=== PATIENT | female | born 1955 | race Caucasian/White ===

== ENCOUNTER 2019-12-16 10:39 | Day surgery (SDC) | payer OTHER ==
[~2019-12-16 10:39] MED LIST: SODIUM CHLORIDE 0.9% 1000 ML 1,000 ML IV SCH
--- NOTE | 2019-12-16 12:00 | Anesthesia Consultation ---
Anesthesia Consult and Med Hx Date of service: 12/16/19 - Airway Anesthetic Teeth Evaluation: Crowns ROM Head & Neck: Adequate Mental/Hyoid Distance: Adequate Mallampati Class: Class I Intubation Access Assessment: Good - Pulmonary Exam CTA: Yes - Cardiac Exam Cardiac Exam: No Murmur - Pre-Operative Health Status ASA Pre-Surgery Classification: ASA2 Proposed Anesthetic Plan: MAC - Pulmonary Hx Smoking: No Hx Respiratory Symptoms: No COPD: No Hx Sleep Apnea: No - Cardiovascular System Hx Hypertension: Yes Hx Angina: No Hx Pacemaker: No Hx Internal Defibrillator: No Hx Peripheral Vascular Disease: No - Central Nervous System Hx Neuromuscular Disorder: No Hx Seizures: No Hx Psychiatric Problems: No - Gastrointestinal Hx Ulcer: Yes Hx Gastroesophageal Reflux Disease: Yes (Hiatal hernia) - Endocrine Hx Renal Disease: No Hx Liver Disease: No Hx Insulin Dependent Diabetes: No Hx Non-Insulin Dependent Diabetes: No Hx Thyroid Disease: No - Other Systems Hx Alcohol Use: No Hx Substance Use: No Hx Obesity: No - Additional Comments Anesthesia Medical History Comments: Patient denies previous anesthesia complications
--- NOTE | 2019-12-16 12:02 | Anesthesia Day of Surgery ---
Anesthesia Day of Surgery - Day of Surgery Patient Examined: Yes Patient H&P Reviewed: Yes Patient is NPO: Yes Beta Blockers: No Cardiac Clearance: No Pulmonary Clearance: No
[2019-12-16] MEDS ORDERED: propofoL 200 MG/20 ML VIAL IV ONE (12:04)
[2019-12-16] MEDS ORDERED: fentaNYL 100 MCG/2 ML INJ ONE (12:04)
[2019-12-16] MEDS ORDERED: LIDOCAINE MPF (2%) 20 MG/1 ML VIAL 5 ML ONE (12:04)
--- NOTE | 2019-12-16 13:05 | Operative Report ---
PROCEDURE: Esophagogastroduodenoscopy with biopsy. INDICATIONS: This is a 64-year-old female complaining of epigastric pain and discomfort. EGD was done to assess for the problem. DESCRIPTION OF PROCEDURE: The procedure was done after getting informed consent with MAC anesthesia. Instrument was passed through the hypopharynx into the esophagus, which showed moderate distal erosive esophagitis. Stomach showed gastritis. No ulcers were noted within the gastric lumen either in the straight or the retroverted view. The pylorus was patent. The duodenum in the first and the second portion appeared normal. Biopsy was done from the second part of the duodenum to rule out for possible celiac disease. Additional biopsy was done from the gastric antrum and gastric body to rule out for H. pylori and atrophic gastritis. Biopsy was also done from the distal esophagus to rule out for erosive esophagitis. There was minimal bleeding associated with the procedure. No complications associated with the procedure. ASSESSMENT: Epigastric pain, no peptic ulcer disease noted. [id number] distal erosive esophagitis, gastritis, rule out celiac disease. PLAN: To treat the patient with PPI and p.r.n. dose of Bentyl. A colonoscopy is also to be done as part of colon polyp screening. The patient also has a prior history of hysterectomy. The patient will be asked to avoid aspirin and aspirin-related products for the next 3 days. The procedure was done in the GI lab with assistance of the GI lab team, which included Bruna Byers as well as Giuseppe jones and with assistance of Anesthesia. JOB# [id number] ARIANNA/HARPER
--- NOTE | 2019-12-16 13:05 | Procedure Note ---
Date of procedure: 12/16/19 Pre-op diagnosis: Epigastric Pain/ Colon Polyp Screening Post-op diagnosis: other (Mild to Moderate Erosive Esophagitis/ Gastritis/ R/O Celiac Disease/ No Peptic Ulcer disease noted/ Solitary,Small Sigmoid Polyp (possibly Hyperplastic)/ Moderate,Left Colon Divertiucli/ Minor,Internal Hemorrhoid) Procedure: EGD with Biopsy and Colonoscopy with Biopsy Anesthesia: [facility] [place] Surgeon: MELA MAHAJAN Estimated blood loss: minimal Pathology: list Specimen disposition: to lab Condition: stable Disposition: same day (Treat with PPI and prn Bentyl. Encourage fiber intake; avoid aspirin and NSAID for 5 days, otherwise resume home medication.)
--- NOTE | 2019-12-16 13:21 | Operative Report ---
PROCEDURE: Colonoscopy. INDICATIONS: The patient had an EGD done prior to the colonoscopy. EGD showed presence of [id number] erosive esophagitis, gastritis. Biopsy was also done to rule out for possible celiac disease. DESCRIPTION OF PROCEDURE: Colonoscopy was done after getting informed consent. Initial rectal exam was unremarkable. Instrument was passed through the rectum onto the cecum, which was identified with ileocecal valve and the appendiceal orifice. Visualization was fair to good. Cecum, ascending colon, transverse colon showed normal mucosa as did the descending colon. In the sigmoid, there was a solitary small possibly hyperplastic polyp that was removed by cold biopsy. The left colon had moderately severe diverticular disease, some of which were deep and the rectum showed minor internal hemorrhoid on the retroverted view. ASSESSMENT: Colon polyp screening, solitary small sigmoid polyp, possibly hyperplastic. Moderate left colon diverticular disease, minor internal hemorrhoid. There was a biopsy done so there was some minimal bleeding associated with the procedure, but no complications associated with the procedure. ASSESSMENT: To encourage the patient to take fiber supplements because of the EGD findings of esophagitis, gastritis and history of abdominal pain. The patient is to be treated with PPI and p.r.n. dose of Bentyl. The patient will be asked to avoid aspirin and aspirin-related products for the next 5 days. Otherwise, resume home medication and follow up in the office in 1-2 weeks' time. JOB# [id number] ARIANNA/HARPER
[2019-12-16 13:44] VITALS: BP 125/55
[2019-12-16] MEDS ORDERED: WATER FOR IRRIG STERILE 250 ML BOTTLE IR ONE (14:04)
--- NOTE | 2019-12-16 17:18 | Post Anesthesia Evaluation ---
- Post Anesthesia Evaluation Patient Participated: Yes Airway Patent: Yes Stable Respiratory Function: Yes Nausea/Vomiting: No Temp > 96.8F: Yes Pain Manageable: Yes Adequeate Hydration: Yes Anesthesia Complications: No Block Receding Appropriately: Not Applicable Patient on Ventilator: No
== END 2019-12-16 14:02 | disposition home or self-care (01) ==
LOC: GIO 10:39
DX: Z12.11 Encounter for screening for malignant neoplasm of colon (principal); R14.0 Abdominal distension (gaseous); R10.13 Epigastric pain; K57.30 Diverticulosis of large intestine without perforation or abscess without bleeding; K64.8 Other hemorrhoids; K21.00 Gastro-esophageal reflux disease with esophagitis, without bleeding; K29.70 Gastritis, unspecified, without bleeding; K31.89 Other diseases of stomach and duodenum; I10 Essential (primary) hypertension; K63.89 Other specified diseases of intestine; Z90.710 Acquired absence of both cervix and uterus; Z79.899 Other long term (current) drug therapy; Z98.890 Other specified postprocedural states
CPT/HCPCS: 43239; 45380; 88305; 88342; J2704; J3010; J7030

== ENCOUNTER 2021-10-15 10:21 | Outpatient (CLI) | payer OTHER ==
[2021-10-15 13:04] LABS: Mucus,Urine FEW /HPF
[2021-10-15 13:11] LABS: Color,Urine Straw (Yellow)
== END 2021-10-15 10:22 | disposition home or self-care (01) ==
LOC: LABHHL 10:21
PROVIDERS: ATTEND Internal Medicine
DX: N39.0 Urinary tract infection, site not specified (principal)
CPT/HCPCS: 81001; 87086